=== PATIENT | male | born 1960 | race African-American/Black ===

== ENCOUNTER 2017-10-06 22:26 | Emergency (ER) | payer OTHER ==
[~2017-10-06] VITALS: Ht 182.9 cm; Wt 88.5 kg
[~2017-10-06 22:26] MED LIST: AVELOX400 MG PO; CYCLOBENZAPRINE5 MG PO; FLEXERIL PO; FLONASE 0.05%50 MCG NASAL; IBUPROFEN 600600 M1 PO; NOHOMEMEDICATIONS; NORCO 5-325 TA1 EACH; NORCO 5-325 TA1 EACH PO; PHENERGAN 25 MG25 M1 PO; VALIUM5 MG PO; ZOFRAN 4 MG ORAL4 MG PO; ZOFRAN ODT4 MG PO
[2017-10-06] MEDS ORDERED: MEDROLDOSEPACK PO (23:34)
[2017-10-06] MEDS ORDERED: FLEXERIL PO (23:34)
[2017-10-06] MEDS ORDERED: TESSALON PERLE100 MG PO (23:34)
[2017-10-06 23:37] VITALS: BP 119/74
[2018-02-28] MEDS ORDERED: ATORVASTATIN CA40 MG PO (13:46)
[2018-02-28] MEDS ORDERED: ASPIR 8181 MG PO (13:46)
[2018-02-28] MEDS ORDERED: CLOPIDOGREL75 MG PO (13:46)
== END 2017-10-06 23:52 | disposition home or self-care (01) ==
LOC: ER 22:26
DX: S29.012A Strain of muscle and tendon of back wall of thorax, initial encounter (principal); J20.9 Acute bronchitis, unspecified; F17.210 Nicotine dependence, cigarettes, uncomplicated; Z88.0 Allergy status to penicillin; Z88.6 Allergy status to analgesic agent; X58.XXXA Exposure to other specified factors, initial encounter; Y93.89 Activity, other specified; Y92.89 Other specified places as the place of occurrence of the external cause; Y99.8 Other external cause status

== ENCOUNTER 2018-02-07 18:33 | Emergency (ER) | payer OTHER ==
[~2018-02-07] VITALS: Ht 182.9 cm; Wt 88.0 kg
[~2018-02-07 18:33] MED LIST changes: +MEDROLDOSEPACK PO; +TESSALON PERLE100 MG PO
[2018-02-07] MEDS ORDERED: NORCO 5-325 TA1 EACH PO (20:04)
[2018-02-07 20:38] VITALS: BP 109/72
== END 2018-02-07 20:42 | disposition home or self-care (01) ==
LOC: ER 18:33
DX: S09.90XA Unspecified injury of head, initial encounter (principal); M54.2 Cervicalgia; H53.149 Visual discomfort, unspecified; F17.210 Nicotine dependence, cigarettes, uncomplicated; Z88.0 Allergy status to penicillin; Z88.5 Allergy status to narcotic agent; Y04.8XXA Assault by other bodily force, initial encounter; Y93.89 Activity, other specified; Y92.89 Other specified places as the place of occurrence of the external cause; Y99.8 Other external cause status

== ENCOUNTER 2018-10-02 10:28 | Inpatient (IN) | payer OTHER ==
[~2018-10-02] VITALS: Ht 182.9 cm; Wt 91.1 kg
[~2018-10-02 10:28] MED LIST changes: +ASPIR 8181 MG PO; +ATORVASTATIN CA40 MG PO; +CLOPIDOGREL75 MG PO
[2018-10-02 10:30] VITALS: BP 118/78
[2018-10-02 10:49] LABS: ABSOLUTE NEUTROPHILS 4.2 thou/uL (1.4-8.2); BASOPHILS 1.2 % (0.0-2.0); EOSINOPHILS 3.7 % (0.0-3.0); HEMATOCRIT 50.4 % (42.0-52.0); HEMOGLOBIN 17.3 gm/dL (14.0-18.0); LYMPHOCYTES 25.1 % (24.0-44.0); MCH 32.4 pg (26.0-34.0); MCHC 34.3 g/dL (28.0-37.0); MCV 94.4 fL (80.0-100.0); MONOCYTES 10.9 % (1.0-8.0); POLYS 59.1 % (36.0-66.0); RBC 5.34 mil/uL (4.50-6.00); RDW 14.3 % (10.5-14.5); WBC 7.2 thou/uL (4.0-11.0)
[2018-10-02 10:58] LABS: ANION GAP 10 mmol/L (7-16); BUN 16 mg/dL (7-18); CALCIUM 9.4 mg/dL (8.5-10.1); CHLORIDE 101 mmol/L (98-107); CO2 25 mmol/L (21-32); CREATININE 0.8 mg/dL (0.7-1.3); GLUCOSE 97 mg/dL (74-106); POTASSIUM 4.8 mmol/L (3.5-5.1); SODIUM 136 mmol/L (136-145)
[2018-10-02 11:07] LABS: TROPONIN-I <0.06 ng/mL (<0.06)
[2018-10-02 11:11] LABS: PLATELET COUNT 181 thou/uL (150-400)
[2018-10-02 13:45] VITALS: BP 103/61
[2018-10-02 14:05] VITALS: BP 111/73
--- NOTE | 2018-10-02 14:06 | NUR ---
ORGINAL EKG IS WITH ER DOCTOR AND IS GOING TO TUBE IT DOWN WHEN HE IS DONE.
[2018-10-02 14:13] VITALS: BP 103/60
--- NOTE | 2018-10-02 16:02 | NUR ---
ADMITTED FROM ER UNDER 'S CARE. ADMITTED WITH CHEST PAIN. UPON ADMISSION STILL C/O CHEST PAIN. CHRONIC NECK PAIN ALSO REPORTED. VSS. NO S/S ACUTE DISTRESS NOTED OR REPORTED UPON ADMISSION. CONSULTED FOR CARDIOLOGY AND ORDERED STAT TROPONIN ON PT. PER MD, DO NOT ADMIN ANY MORE PAIN MEDICATION UNTIL EVALUATED BY . PT'S SPOUSE AT BEDSIDE. IVF STARTED ON THE FLOOR. WILL CONT TO MONITOR FOR ANY CHANGES IN CONDITION.
[2018-10-02 20:35] VITALS: BP 105/63
[2018-10-03] VITALS (7 sets, daily range): BP systolic 92–108; BP diastolic 49–67
--- NOTE | 2018-10-03 00:47 | NUR ---
PATIENT SEEN BY DR JAMIL DURING SHIFT CHANGE, AOX4. STILL WITH COMPLAINT OF CHEST PAIN DESCRIBED PRESSURE, SHARP RADIATING TO THE RIGHT AND HURTS MORE WITH LYING DOWN, 8/10. GI COCKTAIL GIVEN ORDERED, PAIN WENT DOWN TO 6/10 ONLY. PATIENT GIVEN NITROGLYCERIN PASTE ORDERED BUT NO CHANGES WAS NOTED. SR ON THE MOITOR. PULSES 2+/2+. NO EDEMA. CLEAR LUNG SOUNDS ON ROOM AIR. INSTRUCTED PATIENT ON NPO STARTING MIDNIGHT, FOR STRESS TEST AND THE POSSIBILITY OF DR PERRY ELECTING TO PROCEED WITH CATH. IV ON THE LEFT HAND WITH NSS AT 75 ML/HOUR, INFUSING WELL. MAINTAINED ON FALL PRECAUTION. FF UP POC.
--- NOTE | 2018-10-03 08:54 | EKG ---
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 : 1960 Requested By: Bello Ferreira Order Number: [id number] MD: Saud Mike Measurements Intervals [place] Rate: 78 P: 82 TN: 114 QRS: 50 QRSD: 87 T: 22 QT: 389 QTc: 444 Interpretive Statements Sinus rhythm Borderline short TN interval Compared to ECG 02/28/2018 06:14:41 no significant change was found Electronically Signed On 10-03-2018 8:54:39 CDT by Saud Mike [email or web address] ��������������������������������������������� <ELECTRONICALLY SIGNED> ���������������������������������������� By: Saud Mike MD, [facility] ��������������������������������������������� 10/03/18 0854 1030 1030 Saud Mike MD, FACC /EPI
--- NOTE | 2018-10-03 08:55 | EKG ---
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: hannah : 1960 Requested By: Bello Ferreira Order Number: [id number] MD: Saud Mike Measurements Intervals [place] Rate: 59 P: 74 ME: 121 QRS: 56 QRSD: 90 T: 12 QT: 438 QTc: 434 Interpretive Statements Sinus rhythm Short ME interval Compared to ECG 02/28/2018 06:14:41 No significant change was found Electronically Signed On 10-03-2018 8:55:05 CDT by Saud Mike [email or web address] ��������������������������������������������� <ELECTRONICALLY SIGNED> ���������������������������������������� By: Saud Mike MD, [facility] ��������������������������������������������� 10/03/18 0855 D: [id number] Saud Mike MD, FACC /EPI
[2018-10-03 09:48] LABS: CHOLESTEROL 157 mg/dL (<200); HDL CHOLESTEROL 39 mg/dL (>40); LDL CHOLESTEROL 103 mg/dL (<100); TRIGLYCERIDE 75 mg/dL (<150); VLDL 15 mg/dL (<40)
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
--- NOTE | 2018-10-03 18:26 | NUR ---
ASSUMED CARE OF PT AT 0645. PLAN FOR STRESS TEST. HARDIK DIET POST TEST. PT WAITING TO HEAR FROM CARDIOLOGY ABOUT CATH. PRN PAIN MEDS. HARDIK UP AD MANOJ. AT BEDSIDE.
[2018-10-04 00:38] VITALS: BP 99/63
[2018-10-04 03:42] VITALS: BP 103/75
--- NOTE | 2018-10-04 05:04 | NUR ---
PT. AOX4 AT SHIFT CHANGE; C/O CHEST PAIN 01/02; REFUSED PRN PAIN MEDICATION; EDUCATED ABOUT PAIN MANAGEMENT; ST. UNDERSTANDING; AROUND 2230; RE-ASSESSMENT OF CHEST PAIN; 03/04; REFUSED NITRO PATCH DUE TO DECREASE BP EARLY ON THE MORNING; OFFERED PRN PAIN MEDICATION; EDUCATED AGAIN ABOUT PAIN MANAGEMENT; ACCEPTED PRN PAIN MEDICATION; PAIN RE-ASSESSMENT 12/02; SBP 99; NO C/O HEADACHE OR DIZZINESS; HR THROUGH THE NIGHT ON 49-50'S; ABLE TO REST DURING THE NIGHT WITH EYES CLOSE; ASSESSMENT CHARGED; FOLLOWING POC; WILL PASS ON REPORT.
[2018-10-04 08:10] VITALS: BP 100/66
[2018-10-04 08:37] LABS: ALBUMIN 2.9 g/dL (3.4-5.0); CALCIUM 8.4 mg/dL (8.5-10.1); CREATININE 0.9 mg/dL (0.7-1.3); POTASSIUM 4.2 mmol/L (3.5-5.1); TOTAL BILIRUBIN 0.2 mg/dL (<0.1-1.0); TOTAL PROTEIN 6.1 g/dL (6.4-8.2)
[2018-10-04 10:53] VITALS: BP 99/51
--- NOTE | 2018-10-04 15:47 | NUR ---
patient returned from cardiac cath. [facility] following. He has no health insurance. [employer] (formerly [employer]) has met with patient. He has safety clinic information from 03/13. [facility] to meet with patient and assist with dc planning.
--- NOTE | 2018-10-04 16:44 | NUR ---
ASSESSMENT CHARTED - PT NPO AFTER LIQUID BREAKFAST THIS AM FOR CATH THIS AFTERNOON. PT EDUCATED IN REGARDS TO CATH AND PERMIT SIGNED. PT STARTED ON IMDUR THIS AM ORDERED. PT STATING PAIN TO UPPER CHEST IS MORE OF A SORENESS RATHER THAN SHARP PAIN. PT IN EPIDEMIOLOGY INTERNSHIP AT THE PRESENT TIME AWAITNG PATIENT RETURN.
[2018-10-04 19:43] VITALS: BP 100/57
[2018-10-05 00:19] VITALS: BP 104/61
--- NOTE | 2018-10-05 03:38 | NUR ---
ASSUMED PT CARE AT 1900. VSS. PT A&0X4. PT POST CLEAN CATH. R GROIN ACCESS SITE IS CDI, NO HEMATOMA, SOFT TO PALPATION. PT COMPLAINED OF SOPME TENDERNESS AT THE SITE, HYDROCODONE ADMINISTERED PAIN RELIEF REPORTED. I WENT OVER LIFESTYLE CHANGES WITH THE PATIENT WHICH INCLUDES DIETARY CHANGES, EXCERCISE, SMOKING CEASATION. PT COMMUNICATES UNDERSTANDING AND PROMISED TO MODIFY RISK FACTORS. PT IS STABLE, HE SLEPT FOR MOST OF THE NIGHT, HE WAS TRIPP IN THE HIGH 50s ON THE MONITOR, SHOULD D/C IN THE AM.
[2018-10-05 04:39] VITALS: BP 104/69
[2018-10-05 07:39] VITALS: BP 123/73
[2018-10-05] MEDS ORDERED: EFFIENT10 MG PO (09:24)
[2018-10-05] MEDS ORDERED: IMDUR 30 MG TAB30 M1 PO (09:24)
[2018-10-05] MEDS ORDERED: METOPROLOL SUCC50 MG PO (11:33)
[2018-10-05 12:59] VITALS: BP 123/73
--- NOTE | 2018-10-05 14:24 | NUR ---
PT HARDIK DIET AND FLUIDS. UP AD MANOJ - NO CO'S OF PAIN OR NAUSEA. SEEN BY CARDIAC REHAB THIS AM. PT HOME AFTER LUNCH. INSTRCUTION RE HOME MEDS/ CARE AND FOLLOW UP GIVEN TO PATIENT - STATED UNDERSTANDING OF INSTRUCTION GIVEN. IV AND TELE MONITOR REMOVED. PATIENT LEFT UNIT VIA WHEEL CHAIR - HOME VIA PVT VEHICLE ACCOMPANIED BY - NO CO'S AT TIME OF D/C.
--- NOTE | 2018-10-06 14:18 | CATHLAB ---
[facility] [address] [place] [address] INVASIVE PROCEDURE REPORT Name: LUIS ABREU Room #: 204-P DIS IN M.R.#: [id number] ������������� Admission: 10/02/18 ������������� Attend Phys: Rosalina Schuster Discharge: ��� 10/05/18 ������������� ��� Date of : 62 Date of Service: 10/06/18 1418 �� Report #: [id number] �������� ��������������������������������������������[id number] THIS REPORT FOR: //name// APPROVED REPORT Study performed: 10/04/2018 16:08:01 Patient Details Patient Status: In-Patient Room #: The patient is a 58 year-old male Event Personnel Heriberto Wynn Lithopone Charger, Ana Lucio RN RN, Luis Beebe RN RN, Sabine French RTR, HIGH SPEED WARPER TENDER Alejo, Jacquelyn Mejias Monitor Procedures Performed Art Access - R femoral artery* 62456 Initial Mod Sed Same Phys/QHP Gr5y 165726 54041 Mod Sed Same Phys/QHP Ea 665294 Left Heart Cath w/or w/o Coronaries [id number] [facility] Hemostasis w/ Mynx, supervision of conscious sedation Indication Positive stress test, Chest pain Procedure Narrative The patient was brought urgently to the Cardiac Catheterization Laboratory and was prepped and draped in a sterile manner. The Right Groin^ was infiltrated with 1% Lidocaine subcutaneous anesthesia. A PINNACLE 4FR Sheath #[id number] sheath was inserted into the RFA^. Coronary angiography was performed using coronary diagnostic catheters. The right coronary system was accessed and visualized with a JR 4 catheter. The left coronary system was accessed and visualized with a JL 4 catheter. The left ventricle was accessed and visualized with a Pigtail catheter. Left ventricular/Aortic Valve gradient assessed via catheter pullback. Closure device was deployed with a 6 Fr Mynx. The patient tolerated the procedure well and there were no complications associated with the procedure. There was no hematoma. Intraoperative Conscious Sedation Sedation start time: 16:25 Case end Time: 17:12 Versed 2 mg [address] [place] [address] INVASIVE PROCEDURE REPORT Name: BRADYLUIS SALINAS Room #: 204-P DIS IN [facility].#: [id number] ������������� Admission: 10/02/18 ������������� Attend Phys: Rosalina Schuster Discharge: ��� 10/05/18 ������������� ��� Date of : 62 Date of Service: 10/06/18 1418 �� Report #: [id number] �������� ��������������������������������������������[id number] Fluoro Time: 15.09 minutes Dose: DAP 08869.00 cGycm2 1541 mGy Contrast Type and Amount: Omnipaque 150 ml Coronary Angiography The patient's coronary anatomy is left dominant. Diagnostic Cath Left Main Caliber vessel of normal origin of the case into a left anterior descending left circumflex and the ramus intermedius. It is free of significant high-grade lesions. LAD large caliber vessel coursing the anterior interventricular sulcus. This lumen irregularities noted throughout the proximal and the mid course of less than 50% as the vessel proceeds hooking the apex and terminating in the posterior aspect of the left ventricle. Diagonal 1 Large-caliber vessel coursing around the anterolateral wall feel high-grade disease only luminal irregularities are noted Circumflex Her caliber vessel which in its proximal course has irregularities of 30-40%. It then proceeds posteriorly to the crux of the heart where it gives rise to a small posterior descending artery. No high-grade obstructive lesions are noted Right Coronary A moderate non-dominant vessel which has a stent and is completely occluded prior to reaching the crux of the heart. Distally a small string-like vessel had non-dominant RV branches are noted Ramus Large caliber vessel arising from the left main coursing along the lateral aspect of the heart bifurcating into sequentially bifurcating branches that supply the lateral and inferolateral huang. It is free of significant high-grade lesions only luminal irregularities noted Hemodynamics The aortic pressure is 111/67 mmHg with a mean of 86 mmHg. The left ventricular pressure is 112/17 mmHg with a mean of mmHg. The left ventricular end diastolic pressure is 31 mmHg. PCI Technique In view of a totally occluded stent which appears to likely have occurred prior to this admission it was reasonable to attempt control crossing. This was then proceeded with the exchange of the diagnostic catheter for a standard right guide. A 014 wire was advanced and attempted to cross the lesion and multiple weight-bear small little branches prior to it per minute axis to it. In view of the patient's distal circulation being small and nondominant it was felt the risk [address] [address] INVASIVE PROCEDURE REPORT Name: BRADYLUIS SALINAS Room #: 204-P [facility] IN M.R.#: [id number] ������������� Admission: 10/02/18 ������������� Attend Phys: Rosalina Schuster Discharge: ��� 10/05/18 ������������� ��� Date of : 62 Date of Service: 10/06/18 1418 �� Report #: [id number] �������� ��������������������������������������������[id number] to benefit ratio favored stopping the procedure before attempting any further dilatation Conclusion 1. Coronary disease multivessel with severe poorly occluded nondominant right coronary artery at the prior stent 2. Abnormal urinalysis elevated left ventricular end-diastolic pressures Recommendations Aggressive Medical Therapy Medical Therapy ��������������������������������������������� <ELECTRONICALLY SIGNED> ���������������������������������������� By: Heriberto Wynn MD ��������������������������������������������� 10/06/18 1418 1418 141 Heriberto Wynn MD /INF
== END 2018-10-05 13:55 | disposition home or self-care (01) | DRG 287 ==
LOC: ER 10:28 → 2N 13:22 → EROBS 13:22 → 2N 14:07 → ENTRNSPT 10-05 13:36 → EDTRNSPTSTS 10-05 13:38 → 2N 10-05 13:55
PROVIDERS: Emergency Medicine; Nurse Practitioner; ADMIT Hospitalist
DX: I24.9 Acute ischemic heart disease, unspecified (principal); F12.90 Cannabis use, unspecified, uncomplicated; F17.210 Nicotine dependence, cigarettes, uncomplicated; I25.10 Atherosclerotic heart disease of native coronary artery without angina pectoris; M19.90 Unspecified osteoarthritis, unspecified site; E78.5 Hyperlipidemia, unspecified; Z95.5 Presence of coronary angioplasty implant and graft; Z88.6 Allergy status to analgesic agent; Z88.0 Allergy status to penicillin; Z82.49 Family history of ischemic heart disease and other diseases of the circulatory system; I25.2 Old myocardial infarction; Z79.82 Long term (current) use of aspirin; Z79.899 Other long term (current) drug therapy
CPT/HCPCS: 10081

== ENCOUNTER 2018-10-09 13:34 | Inpatient (IN) | payer OTHER ==
[~2018-10-09] VITALS: Ht 182.9 cm; Wt 93.0 kg
[~2018-10-09 13:34] MED LIST changes: +EFFIENT10 MG PO; +IMDUR 30 MG TAB30 M1 PO; +METOPROLOL SUCC50 MG PO
[2018-10-09 13:40] VITALS: BP 111/77
[2018-10-09] MEDS ORDERED: LOPRESSOR25 PO (14:29)
[2018-10-09 14:44] LABS: ABSOLUTE NEUTROPHILS 10.2 thou/uL (1.4-8.2); BASOPHILS 0.7 % (0.0-2.0); EOSINOPHILS 0.6 % (0.0-3.0); HEMATOCRIT 46.1 % (42.0-52.0); HEMOGLOBIN 15.9 gm/dL (14.0-18.0); LYMPHOCYTES 9.6 % (24.0-44.0); MCH 32.4 pg (26.0-34.0); MCHC 34.5 g/dL (28.0-37.0); MCV 93.9 fL (80.0-100.0); MONOCYTES 5.8 % (1.0-8.0); POLYS 83.3 % (36.0-66.0); RBC 4.91 mil/uL (4.50-6.00); RDW 13.5 % (10.5-14.5); WBC 12.2 thou/uL (4.0-11.0)
[2018-10-09 14:52] LABS: CALCIUM 8.7 mg/dL (8.5-10.1); CREATININE 0.9 mg/dL (0.7-1.3); POTASSIUM 3.7 mmol/L (3.5-5.1)
[2018-10-09 14:58] LABS: ALBUMIN 3.2 g/dL (3.4-5.0); TOTAL BILIRUBIN 0.3 mg/dL (<0.1-1.0); TOTAL PROTEIN 7.9 g/dL (6.4-8.2)
[2018-10-09 15:03] LABS: LARGE PLATELETS RARE; PLATELET COUNT 157 thou/uL (150-400)
[2018-10-09 16:46] VITALS: BP 121/75
[2018-10-09 16:53] LABS: URINE BILIRUBIN NEGATIVE (Negative); URINE BLOOD NEGATIVE (Negative); URINE CLARITY CLEAR; URINE COLOR YELLOW; URINE GLUCOSE-RANDOM* NEGATIVE (Negative); URINE KETONES NEGATIVE (Negative); URINE LEUKOCYTES-REFLEX NEGATIVE (Negative); URINE NITRITE-REFLEX NEGATIVE (Negative); URINE PROTEIN (DIPSTICK) NEGATIVE (Negative); URINE UROBILINOGEN 0.2 E.U./dl (0.2-1.0)
[2018-10-09 17:11] VITALS: BP 119/77
[2018-10-09 17:30] VITALS: BP 131/84
--- NOTE | 2018-10-09 18:09 | NUR ---
PT ARRIVED FROM ED AT 17:26. MARKIE AT BEDSIDE. ADMISSION ASSESSMENT COMPLETED. A&0,X4. C/O RIGHT FLANK PAIN RADIATING TO ABD AND BACK, PT GRIMACING IN PAIN. NEXT PAIN MED AVAILABLE AT 2100, PHYSICIAN NOTIFIED. NO NEW PAIN MED ORDERS AT THIS TIME. HX CARDIAC STENT IN FEBRUARY 2018 AND RECENT HOSPITALIZATION. SKIN INTACT. BRUISING NOTED RLQ ABD FROM LOVENOX INJECTIONS. PT REPORTS NAUSEA/VOMITING AT HOME, DARK EMESIS X2. WILL CONTINUE TO MONITOR.
[2018-10-09 20:18] VITALS: BP 118/81
--- NOTE | 2018-10-10 04:34 | NUR ---
PT STATES NO N/V OR DIARRHEA THIS EVENING. CHIEF COMPLAINT IS GENERALIZED ABDOMINAL PAIN. PT STATES, "WHAT EVER YOU ARE GIVING ME IS NOT WORKING!" SPOKE WITH PT DURING ASSESSMENT AND SUGGESTED A DIFFERENT IV PAIN MEDICATION. PT IS NPO SINCE ADMISSION. CALLED [employer] GRINDER FEEDER AND GOT NEW ORDER FOR FENANYL Q4. PT HAS HAD GOOD RESULTS WITH PAIN COMING UNDER CONTROL. IVF PER POC. HOURLY ROUNDING.
[2018-10-10 04:45] VITALS: BP 106/66
[2018-10-10 05:43] LABS: HEMATOCRIT 41.9 % (42.0-52.0); HEMOGLOBIN 14.2 gm/dL (14.0-18.0); MCH 32.1 pg (26.0-34.0); MCHC 33.8 g/dL (28.0-37.0); MCV 94.8 fL (80.0-100.0); RBC 4.42 mil/uL (4.50-6.00); RDW 13.8 % (10.5-14.5); WBC 10.7 thou/uL (4.0-11.0)
[2018-10-10 05:53] LABS: CALCIUM 8.2 mg/dL (8.5-10.1); CREATININE 0.8 mg/dL (0.7-1.3); POTASSIUM 3.6 mmol/L (3.5-5.1)
[2018-10-10 08:40] VITALS: BP 102/55
[2018-10-10 15:34] VITALS: BP 112/60
--- NOTE | 2018-10-10 16:58 | EKG ---
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: DAMGAR : 1960 Requested By: Danielle Herndon Order Number: [id number] MD: Saud Mike Measurements Intervals [place] Rate: 53 P: 65 WV: 133 QRS: 31 QRSD: 82 T: -3 QT: 430 QTc: 404 Interpretive Statements Sinus bradycardia Otherwise normal tracing Compared to ECG 10/02/2018 11:08:48 No significant change was found Electronically Signed On 10-10-2018 16:58:06 CDT by Saud Mike [email or web address] ��������������������������������������������� <ELECTRONICALLY SIGNED> ���������������������������������������� By: Saud Mike MD, [facility] ��������������������������������������������� 10/10/18 1658 1406 140 Saud Mike MD, FACC /EPI
--- NOTE | 2018-10-10 18:32 | NUR ---
Assumed care of Pt at 0700. PT alert and oriented, complaining of RLQ pain that radiates to flank. CT showing worsening inflammation around pancreas. to be NPO until tomorrow per GI. pt reports pain not well controlled with current med regimen - physician notified - no orders received. pt up ad tariq w/ steady gait. calls out appropriately. slow progress toward poc goals.
[2018-10-10 19:17] VITALS: BP 95/51
[2018-10-11 03:00] VITALS: BP 111/63
--- NOTE | 2018-10-11 04:52 | NUR ---
FOLLOWING POC IVF FOR PT. BEFORE 1900 SHIFT CHANGE PT DECIDED TO EAT SOME SOUP. PT THEN STATES HE IS IN MASSIVE PAIN. DIET PLAN WAS TO PROGRESS TOWARDS CLEARS THEN TOLERATE ALLOWABLE. PT ASKED IF PAIN MEDICATION COULD BE GIVEN EARLIER THAN Q4. GOT IT CHANGED TO Q2 AND HAVING GOOD RESULTS. HOURLY ROUNDING.
[2018-10-11 06:07] LABS: HEMATOCRIT 40.4 % (42.0-52.0); HEMOGLOBIN 13.8 gm/dL (14.0-18.0); MCH 32.2 pg (26.0-34.0); MCHC 34.2 g/dL (28.0-37.0); MCV 94.1 fL (80.0-100.0); RBC 4.29 mil/uL (4.50-6.00); RDW 13.5 % (10.5-14.5); WBC 8.7 thou/uL (4.0-11.0)
[2018-10-11 06:49] LABS: ALBUMIN 2.4 g/dL (3.4-5.0); CALCIUM 7.9 mg/dL (8.5-10.1); CREATININE 0.8 mg/dL (0.7-1.3); POTASSIUM 3.5 mmol/L (3.5-5.1); TOTAL BILIRUBIN 0.4 mg/dL (<0.1-1.0); TOTAL PROTEIN 6.1 g/dL (6.4-8.2)
[2018-10-11 07:34] VITALS: BP 110/71
--- NOTE | 2018-10-11 10:40 | NUR ---
ASSESSMENT: CM REVIEWED CHART AND MET WITH PATIENT AT THE BEDSIDE. PT IS ALERT AND ORIENTED X4. PT REPORTS HE LIVES IN A HOME ALONE. PT REPORTS BEING FULLY INDEPENDENT WITH ADLS AND AMBULATION. PT DENIES HAVING HH IN THE PAST. PT STATES HE HAS APPLIED FOR MEDICAID (REFERRAL SENT TO [facility] [employer] FOR FOLLOW UP). CM DISCUSSED ROLE. PT DOES NOT ANTICIPATE HAVING ANY NEEDS AT DISCHARGE. SURGERY WAS CONSULTED FOR PATIENT AND PLANS FOR CONSERVATIVE MEASUREMENTS AT THIS TIME.
[2018-10-11 11:14] VITALS: BP 117/75
[2018-10-11 15:55] VITALS: BP 100/59
[2018-10-11 19:20] VITALS: BP 111/82
[2018-10-12 02:50] VITALS: BP 121/73
--- NOTE | 2018-10-12 05:08 | NUR ---
RESTING QUIETLY TONIGHT. CONITNUES ON IV FLUIDS. STRONG STEADY GAIT. CAREPLAN REVIEWED. CONTINUES TO HAVE PAIN IN HIS ABDOMEN.
[2018-10-12 05:35] LABS: HEMATOCRIT 39.1 % (42.0-52.0); HEMOGLOBIN 13.4 gm/dL (14.0-18.0); MCH 32.2 pg (26.0-34.0); MCHC 34.4 g/dL (28.0-37.0); MCV 93.6 fL (80.0-100.0); RBC 4.17 mil/uL (4.50-6.00); RDW 13.5 % (10.5-14.5); WBC 6.8 thou/uL (4.0-11.0)
[2018-10-12 06:33] LABS: ALBUMIN 2.3 g/dL (3.4-5.0); CHOLESTEROL 91 mg/dL (<200); DIRECT BILIRUBIN 0.2 mg/dL (<0.1-0.3); HDL CHOLESTEROL 30 mg/dL (>40); LDL CHOLESTEROL 51 mg/dL (<100); LIPASE 66 U/L (73-393); SGOT 40 U/L (15-37); SGPT 56 U/L (30-65); TOTAL BILIRUBIN 0.5 mg/dL (<0.1-1.0); TOTAL PROTEIN 5.8 g/dL (6.4-8.2); TRIGLYCERIDE 53 mg/dL (<150); VLDL 11 mg/dL (<40)
[2018-10-12 07:47] VITALS: BP 121/71
--- NOTE | 2018-10-12 12:19 | NUR ---
care of pt assumed this am @ 0700. pt co lower back pain (band of ~4 inches) across his lower back. pt aware of pain medication frequency and states that it is really "not holding back the pain for that time". pt verbalized his desire for a change in pain medication frequency to dr rajput. pt npo w/ ice chips but does not desire ice chips at this time due to the nause they created for him last night. pt chewing gum to help subside nausea "flare ups". ivf's infusing w/o concern at this time. pt up ad tariq to the bthrm w/ a steady, balanced and coordinated gait. pt encouraged to ambulate in the hallways today to help mobility and respiratory fx. pt co pain [phone], pt noted to be sleeping after pain medication given.
--- NOTE | 2018-10-12 15:24 | NUR ---
ON-GOING ASSESSMENT: CM REVIEWED CHART AND SPOKE WITH ATTENDING. PT IS SLOWLY PROGRESSING TOWARDS DISCHARGE GOALS. PT IS STILL HAVING PAIN AND NOT MEDICALLY STABLE AT THIS TIME. CM WILL CONTINUE TO FOLLOW TO ASSIST NEEDED.
[2018-10-12 16:00] VITALS: BP 116/79
--- NOTE | 2018-10-12 18:00 | NUR ---
ASSUMED CARE AT 1700, PATIENT WAS A TRANSFER FOR 357, VSS. UP AD MANOJ, ON IV FLUIDS, NPO EXCEPT ICE CHIPS. REPORTED PAIN, PRN PAIN MED WILL BE GIVEN SCHEDULED.
[2018-10-12 18:52] VITALS: BP 115/72
--- NOTE | 2018-10-13 06:04 | NUR ---
PATIENTS CARES WERE ASSUMED AT SHIFT CHANGE. PATIENT WAS ASSESSED AND MEDS WERE PASSED. PATIENT WAS PLACED ON CLEAR LIQ DIET. PATIENT IS STILL NOT ABLE TO DRINK WITHOUT DISCOMFORT. PREMEDICATION FOR PAIN BEFORE HE DRANK CHICKEN BROTH. HOURLY ROUNDING WAS DONE. PATIENT APPERED TO BE SLEEPING WELL. THE BED IS IN A LOW AND LOCKED POSITION. THE BED ALARM IS ON.
[2018-10-13 08:30] VITALS: BP 122/79
--- NOTE | 2018-10-13 09:29 | NUR ---
Nutrition: assess d/t pancreatitis dx. Pt reports he was eating fine before admit. Now on clear liquids, is tolerating okay but going slowly. He states a UBW of 205 lbs, no recent change. Will follow for diet advancement. Otherwise, consider low nutrition risk.
--- NOTE | 2018-10-13 09:46 | NUR ---
ON-GOING ASSESSMENT: CM REVIEWED CHART AND MET WITH PATIENT AT THE BEDSIDE. PT IS STILL HAVING PAIN. PER GI PT IS TO HAVE ULTRASOUND AND MAY NEED POSSIBLE MRCP. CM MET WITH PATIENT AT THE BEDSIDE AND HE REPORTS HE IS INDEPENDENT AND STATES HE DOES NOT FEEL HE WILL NEED HH AT DISCHARGE AND IS GETTING AROUND FINE. CM WILL CONTINUE TO FOLLOW TO ASSIST NEEDED.
--- NOTE | 2018-10-13 09:54 | NUR ---
ON-GOING ASSESSMENT: PT TO HAVE BRONCH TODAY. PT IS THEN TO HAVE CT NEEDLE BIOPSY OF LUNG MASS ON WEDNESDAY AM. CM REQUESTED SOCK MENDER SENT UPDATES TO THE [facility]. CM WILL CONTINUE TO FOLLOW TO ASSIST NEEDED.
--- NOTE | 2018-10-13 10:16 | NUR ---
ASSUMED PATIENT AND CARES AT 0715, PATIENT SITTING UPRIGHT ON SIDE OF BED, A&OX4, PAIN 8/10 TO ABD, RIGHT FOREARM IV INTACT AND PATENT WITH FLUIDS INFUSING, NONSKID SOCKS IN PLACE, UP AD MANOJ, NO FALL RISK, PERSONAL BELONGINGS AND CALL LIGHT IN REACH, WILL CONTINUE TO MONITOR
--- NOTE | 2018-10-13 18:08 | NUR ---
THIS RN AGREES WITH ASSESSMENT MADE BY DEN FUNEZ.
[2018-10-13 18:50] VITALS: BP 131/76
--- NOTE | 2018-10-14 04:25 | NUR ---
PATIENTS CARESS WERE ASSUMED AT SHIFT CHANGE. PATIENT WAS ASSESSED MEDS WERE PASSED. PATIENT DOES CONTINUE TO HAVE PAIN WHEN HE EATS. EATING HAPPENED ONLY TWICE THIS SHIFT. HOURLY ROUNDING WAS DONE PATIENT DID APPER TO SLEEP MOST OF THIS SHIFT. THE BED IS IN A LOW AND LOCKED POSITION. THE BED ALARM IS ON.
[2018-10-14 07:15] VITALS: BP 133/90
--- NOTE | 2018-10-14 08:23 | NUR ---
ASSUMED PATIENT AND CARES AT 0715, PATIENT IN BED WAKING UP NURSE ENTERED ROOM, REMAINS A&OX4, NO C/O PAIN OR DISCOMFORT AT THIS TIME, NPO SINCE MIDNIGHT FOR EGD THIS DAY, LEFT FOREARM IV INTACT AND PATENT WITH FLUIDS INFUSING, PER PATIENT REQUEST NURSE RETRIEVED SET UP FOR SHOWER, PATIENT WANTS TO SHOWER BEFORE EGD, REMAINS UP AD MANOJ WITH STEADY GAIT, PERSONAL BELONGINGS AND CALL LIGHT IN REACH, WILL CONTINUE TO MONITOR.
[2018-10-14 18:28] VITALS: BP 120/48
[2018-10-14 19:33] VITALS: BP 103/82
--- NOTE | 2018-10-15 14:42 | NUR ---
ASSUMED CARE THIS AM, SHIFT ASSESSMENT DONE, MEDS GIVEN. REPROTED HEADECHE, REFUSED BP MED THIS AM, PROVIDER AWARE. DR SANDHU TALKED TO THE PATIENT EXTENSIVELY AND ADVANCED TO A SOFT DIET, TOLERATED WELL FOR LUNCH. REPORTED PAIN, PRN PAIN MEDS GIVEN. IV FLUIDS DC'D. WILL CONTINUE TO ASSESS AND ASSIST WITH ADLs NEEDED.
[2018-10-15 20:10] VITALS: BP 118/83
--- NOTE | 2018-10-16 03:22 | NUR ---
PATIENT ALERT AND ORIENTED X4. UP ADLIB IN ROOM AND HALLWAY. AT BEDSIDE IN EARLY EVENING. PATIENT DENIES N/V. C/O HEADACHE PAIN AND GIVEN PRN MEDICATION WITH GOOD RESULTS. PATIENT ASLEEP. TOLERATING SOFT DIET. POSSIBLE D/C TODAY.
[2018-10-16 09:04] VITALS: BP 131/71
[2018-10-16] MEDS ORDERED: PERCOCET PO (10:08)
[2018-10-16] MEDS ORDERED: PANTOPRAZOLE SO40 M1 PO (10:08)
[2018-10-16 10:46] VITALS: BP 131/71
--- NOTE | 2018-10-16 11:32 | NUR ---
ASSUMED CARE AT 0700, SHIFT ASSESSMENT DONE, MEDS GIVEN, VSS. TOLERATING SOFT DIET. DID NOT REPORT ANY NAUSEA, VOMITING OR PAIN. DISCHARGE ORDER RECEIVED. SCRIPT AND PAPER WORK GIVEN. PERIPHERAL IV WAS TAKEN OUT. PATIENT LEFT THE UNIT AT 1130, NURSING AID WHEELED THE PATIENT OUT.
[2018-10-17 17:07] LABS: IgG 1190 mg/dL (700-1600)
--- NOTE | 2018-10-18 11:07 | PATH ---
[facility] [address] [place] [address] PATHOLOGY RPT PROCEDURE Name: LUIS ABREU Room #: 221-P DIS IN M.R.#: [id number] ������������������ Admission: 10/09/18 ������������������ Date of : 62 Discharge: 10/16/18 Report #: [id number] Path Case #: [id number] [facility] Accession Number: [id number] . 01 Material submitted: . BX ANTRUM FOR H-PYLORI . 01 Clinical history: . Pre-OP DX: Abdominal pain Post-OP DX: Gastric ulcer . 02 Diagnosis: Gastric mucosa, antrum for H. pylori, endoscopic biopsy: - Mild chronic active gastritis with features of reactive gastropathy. - Negative for intestinal metaplasia or atrophy. - Negative for Helicobacter pylori (properly controlled immunohistochemical stain performed). (IUV/db; 10/17/2018) LBQ/10/17/2018 . 02 Electronically signed: . Bertha Yeung MD, Pathologist NPI- [id number] . 01 Gross description: . Received in formalin labeled "Luis Abreu, BX antrum," is a single segment of kilgore soft tissue measuring 0.5 cm in maximum dimension. The specimen is entirely submitted in cassette A1. (TSD; 10/14/2018) TOB/TOB . 02 Pathologist provided ICD-10: K29.50, K31.9 . 02 CPT . 888957, E15788 Specimen Comment: A courtesy copy of this report has been sent to Specimen Comment: [phone], . Specimen Comment: Report sent to / DR MAO Specimen Comment: A duplicate report has been generated due to demographic updates. Performed at: 01 [place] [id number] [address] [id number] MD Cricket Stanley MD Phone: [phone] Performed at: [address] [address] PATHOLOGY RPT PROCEDURE Name: LUIS ABREU Room #: 221-P DIS IN M.R.#: [id number] ������������������ Admission: 10/09/18 ������������������ Date of : 62 Discharge: 10/16/18 Report #: [id number] Path Case #: [id number] [address] [place] [id number] MD Bertha Yeung MD Phone: [phone]
== END 2018-10-16 11:35 | disposition home or self-care (01) | DRG 439 ==
LOC: ER 13:34 → EROBS 16:05 → 3W 16:05 → ENTRNSPT 10-12 16:18 → SICU 10-12 17:33
PROVIDERS: Nurse Practitioner; Physician Assistant; ADMIT Internal Medicine
PROC: 0DB68ZX Excision of Stomach, Via Natural or Artificial Opening Endoscopic, Diagnostic (ICD-10-PCS; principal; 2018-10-14)
DX: K85.90 Acute pancreatitis without necrosis or infection, unspecified (principal); B17.9 Acute viral hepatitis, unspecified; I25.10 Atherosclerotic heart disease of native coronary artery without angina pectoris; I10 Essential (primary) hypertension; E78.5 Hyperlipidemia, unspecified; M19.90 Unspecified osteoarthritis, unspecified site; K25.9 Gastric ulcer, unspecified as acute or chronic, without hemorrhage or perforation; K29.80 Duodenitis without bleeding; Z88.0 Allergy status to penicillin; Z88.2 Allergy status to sulfonamides; Z79.82 Long term (current) use of aspirin; Z98.1 Arthrodesis status; Z95.5 Presence of coronary angioplasty implant and graft; Z82.49 Family history of ischemic heart disease and other diseases of the circulatory system; Z87.891 Personal history of nicotine dependence; I25.2 Old myocardial infarction; Z87.11 Personal history of peptic ulcer disease
CPT/HCPCS: 10879; 15002; 62110; 62900; 70005

== ENCOUNTER 2019-09-28 21:05 | Emergency (ER) | payer BC ==
[~2019-09-28] VITALS: Ht 182.9 cm; Wt 95.3 kg
[~2019-09-28 21:05] MED LIST changes: +LOPRESSOR25 PO; +PANTOPRAZOLE SO40 M1 PO; +PERCOCET PO
[2019-09-28] MEDS ORDERED: NORCO 7.5-3251 EACH PO (22:00)
[2019-09-28 22:25] VITALS: BP 119/75
== END 2019-09-28 22:26 | disposition home or self-care (01) ==
LOC: ER 21:05
DX: S83.8X1A Sprain of other specified parts of right knee, initial encounter (principal); F17.210 Nicotine dependence, cigarettes, uncomplicated; I25.2 Old myocardial infarction; Z98.61 Coronary angioplasty status; Z98.890 Other specified postprocedural states; Z79.82 Long term (current) use of aspirin; Z79.899 Other long term (current) drug therapy; Z88.5 Allergy status to narcotic agent; Z88.0 Allergy status to penicillin; X50.1XXA Overexertion from prolonged static or awkward postures, initial encounter; Y93.01 Activity, walking, marching and hiking; Y92.89 Other specified places as the place of occurrence of the external cause; Y99.8 Other external cause status

== ENCOUNTER 2020-01-03 03:43 | Emergency (ER) | payer BC ==
[~2020-01-03] VITALS: Ht 182.9 cm; Wt 97.5 kg
[~2020-01-03 03:43] MED LIST changes: +NORCO 7.5-3251 EACH PO
[2020-01-03] MEDS ORDERED: TRAMADOL 50 MG50 MG PO (05:02)
[2020-01-03] MEDS ORDERED: NAPROSYN500 MG PO (05:02)
[2020-01-03 05:04] VITALS: BP 109/75
== END 2020-01-03 05:18 | disposition home or self-care (01) ==
LOC: ER 03:43
DX: M17.11 Unilateral primary osteoarthritis, right knee (principal); F17.210 Nicotine dependence, cigarettes, uncomplicated; Z88.5 Allergy status to narcotic agent; Z88.0 Allergy status to penicillin; Z79.899 Other long term (current) drug therapy; Z79.82 Long term (current) use of aspirin; Z98.890 Other specified postprocedural states

== ENCOUNTER 2020-02-02 05:34 | Emergency (ER) | payer BC ==
[~2020-02-02] VITALS: Ht 182.9 cm; Wt 96.6 kg
[~2020-02-02 05:34] MED LIST changes: +NAPROSYN500 MG PO; +TRAMADOL 50 MG50 MG PO
[2020-02-02] MEDS ORDERED: NITROSTAT0.4 M1 (05:41)
[2020-02-02] MEDS ORDERED: TRAMADOL 50 MG50 MG PO (06:22)
[2020-02-02] MEDS ORDERED: NAPROSYN500 MG PO (06:22)
[2020-02-02] MEDS ORDERED: NORCO 5-325 TA1 EAC2 PO (06:37)
[2020-02-02 06:47] VITALS: BP 132/89
== END 2020-02-02 06:48 | disposition home or self-care (01) ==
LOC: ER 05:34
DX: M17.11 Unilateral primary osteoarthritis, right knee (principal); G89.29 Other chronic pain; F17.210 Nicotine dependence, cigarettes, uncomplicated; Z88.5 Allergy status to narcotic agent; Z88.0 Allergy status to penicillin; Z95.5 Presence of coronary angioplasty implant and graft

== ENCOUNTER → 2020-04-04 | Outpatient (CLI) | payer BC ==
[~2020-04-04] MED LIST changes: +ASA81BEC PO; +LIPITOR40 MG PO; +METOPROLOL TART25 MG PO; +NITROSTAT0.4 M1 SUBLING; +NORCO 5-325 TA1 EAC2 PO
== END ==
LOC: LAB 14:26
PROVIDERS: ATTEND Orthopaedic Surgery
DX: Z01.812 Encounter for preprocedural laboratory examination (principal); Z20.828 Contact with and (suspected) exposure to other viral communicable diseases

== ENCOUNTER 2020-04-09 06:26 | Day surgery (SDC) | payer BC ==
[2020-04-02 11:15] LABS: HEMATOCRIT 49.1 % (42.0-52.0); HEMOGLOBIN 16.5 gm/dL (14.0-18.0); MCH 32.1 pg (26.0-34.0); MCHC 33.6 g/dL (28.0-37.0); MCV 95.6 fL (80.0-100.0); RBC 5.14 mil/uL (4.50-6.00); RDW 14.4 % (10.5-14.5); WBC 7.2 thou/uL (4.0-11.0)
[2020-04-02 11:16] LABS: URINE BILIRUBIN NEGATIVE (Negative); URINE BLOOD NEGATIVE (Negative); URINE CLARITY CLEAR; URINE COLOR YELLOW; URINE GLUCOSE-RANDOM* NEGATIVE (Negative); URINE KETONES NEGATIVE (Negative); URINE LEUKOCYTES-REFLEX NEGATIVE (Negative); URINE NITRITE-REFLEX NEGATIVE (Negative); URINE PROTEIN (DIPSTICK) NEGATIVE (Negative); URINE SPECIFIC GRAVITY 1.025 (1.005-1.035); URINE UROBILINOGEN 0.2 E.U./dl (0.2-1.0)
[2020-04-02 11:24] LABS: ALBUMIN 3.3 g/dL (3.4-5.0); CALCIUM 8.4 mg/dL (8.5-10.1); CREATININE 0.7 mg/dL (0.7-1.3); POTASSIUM 4.1 mmol/L (3.5-5.1)
[2020-04-02 11:29] LABS: PROTIME 10.7 Seconds (9.3-11.4)
[~2020-04-09] VITALS: Ht 182.9 cm; Wt 96.6 kg
[2020-04-09 07:27] VITALS: BP 112/80
[2020-04-09 12:10] VITALS: BP 116/78
[2020-04-09 12:14] VITALS: BP 131/78
[2020-04-09 12:15] VITALS: BP 136/78
--- NOTE | 2020-04-09 14:03 | O ---
[facility] [place] [address] OPERATIVE REPORT Name: LUIS ABREU Room #: 439-P [facility] M.R.#: [id number] Admission: 04/09/20 Attend Phys: Ismael Narayanan MD Discharge: Date of : 62 Report #: [id number] THIS REPORT FOR: cc: MARIAM - Elva family physician/PCP MARIAM - Elva family physician/PCP Ismael Narayanan MD ~ CC: MARIAM physician/PCP Ismael Narayanan DATE OF SERVICE: 04/09/2020 PREOPERATIVE DIAGNOSIS: Right knee osteoarthritis. POSTOPERATIVE DIAGNOSIS: Right knee osteoarthritis. PROCEDURE: Right total knee arthroplasty using Navio robotic assistant program manager. SURGEON: Ismael Narayanan MD. INTRUSION ANALYST: Estrella London PA-C. INDICATIONS FOR INTRUSION ANALYST: Throughout the case, extensive retraction and manipulation of the knee was required. This was afforded to me by my assistant program manager. ANESTHESIA: LMA with an adductor canal block. IMPLANTS: Cespedes and Nephew size 7 Journey II BCS Oxinium femur, a size 6 tibia, size 13 constrained polyethylene and size 35 patella. TOURNIQUET TIME: 62 minutes. ESTIMATED BLOOD LOSS: 25 mL. COMPLICATIONS: None. SPECIMENS: None. CONDITION UPON LEAVING THE OPERATING ROOM: Stable. INDICATIONS FOR PROCEDURE: The patient is a 59-year-old gentleman with right knee osteoarthritis. He had failed conservative measures for this and after discussion with him, he elected for right total knee arthroplasty. DESCRIPTION OF PROCEDURE: Risks, benefits, alternatives, complications were discussed in detail with the patient including but not limited to risk of anesthesia, risk of damage to nerves, arteries, blood vessels, risk for [facility] [address] [place] [address] OPERATIVE REPORT Name: LUIS ABREU Room #: 439-P [facility].#: [id number] Admission: 04/09/20 Attend Phys: Ismael Narayanan MD Discharge: Date of : 62 Report #: [id number] infection, bleeding, risk for continued knee pain and need for reoperation. Informed consent was obtained from the patient. The right knee was appropriately marked in the preoperative holding area. IV clindamycin was given for preoperative antibiotics. He was brought to the operating room and placed in supine position on operating room table. LMA anesthesia was induced without complication. Tourniquet was placed on the right thigh. Right lower extremity was prepped and draped in normal sterile fashion. Timeout was performed properly identifying the patient, the procedure as well as the instrumentation and implants. All in the operating room were in agreement. Right lower extremity was exsanguinated, tourniquet was inflated. Tourniquet time was 62 minutes. Standard midline approach to the knee was made with a 10 blade through the skin. Dissection was taken down sharply to the fascia and deep flaps were developed medially and laterally. Fresh 10 blade was used to make a medial parapatellar arthrotomy and the knee was inspected. There was [id number] medial compartment osteoarthritis with moderate patellofemoral osteoarthritis. ACL and PCL were removed sharply. Reference pins were placed in the femur and the tibia. The knee was digitally mapped using the [employer] Alaris robotic system. Intraoperative plan was made and we sized the size 7 femur with a size 6 tibia and a size 11 spacer. After acceptance of the intraoperative plan, the distal femoral cut was made with a Navio bur. Distal femoral cutting block was pinned in place using the Navio for placement and chamfer cuts were made. Attention was turned to the tibia. Remainder of the menisci removed with Bovie cautery. Tibial resection guide was pinned in place using the Navio for placement and tibial resection was made. Flexion and extension gaps were then checked and found to have good balance laterally in flexion and extension with tightness medially. This was not surprising given the underlying varus deformity of the knee. Medial osteophytes were removed from the tibia and a limited medial release was performed using the pie crust technique. This balanced the knee well and the tibia was sized, found to be a size 6. A size 6 tibial trial was placed, pinned and punched. A size 7 femoral trial was placed and the box cut was made. This was then trialed with a size 12 and then a size 13 polyethylene. Size 13 polyethylene demonstrated 2-3 mm of laxity laterally throughout range of motion of the knee. It was felt we could make up for this with a constrained implant. Medially he was balanced well. A 9 mm was resected from the posterior surface of the patella and a size 35 patellar trial button was placed. The knee was taken through range of motion, found to be stable, found to have good patellar tracking. Trial components were removed. Bony ends were thoroughly irrigated with normal saline. Final size 6 tibia, size 7 Journey II BCS Oxinium femur and a size 35 patella were cemented in place using standard cementation techniques. While the cement cured, a periarticular injection consisting of morphine, ropivacaine, epinephrine, Toradol was placed around the knee joint capsule. After the cement cured, the tourniquet was deflated. Hemostasis was obtained with Bovie cautery. A final size 13 constrained polyethylene was placed. A gram of vancomycin was placed deep in the joint. Fascia was closed with 0 Vicryl, skin was closed with 2-0 Vicryl, skin staple and a DAIN dressing was applied. The patient tolerated this [address] [place] [address] OPERATIVE REPORT Name: BRADYLUIS Room #: 439-P [facility] M.R.#: [id number] Admission: 04/09/20 Attend Phys: Ismael Narayanan MD Discharge: Date of : 62 Report #: [id number] procedure well and went to recovery room under care of anesthesia postoperatively. <ELECTRONICALLY SIGNED> By: Ismael Narayanan MD 04/09/20 1403 1245 1300 Ismael Narayanan MD /nt
[2020-04-09 17:11] VITALS: BP 110/63
--- NOTE | 2020-04-09 18:28 | NUR ---
PT RECEIVED FROM THE REC RM AT 1040 ALERT AND IN NO PAIN. PT ORIENTED TO THE UNIT. ASSESSMENT COMPLETED. RT KNEE DSNG DRY AND INTACT W/ POLAR MELISSA IN PLACE. TEDS AND SCDS IN PLACE. WALKED W/ THERAPY USING WALKER AND DID WELL. EATING AN DRINKING WELL. USING URINAL. PAIN HELPED BY MORPHINE BETTER THAN NORCO. AT BEDSIDE.
[2020-04-09 20:06] VITALS: BP 103/67
--- NOTE | 2020-04-10 02:35 | NUR ---
PT CARE ASSUMED AT 1900 WITH PT IN BED WATCHING TV.PT IS ALERT AND ORIENTED X4.PT HAD RIGHT TKR DONE YESTERDAY.DRESSING OVER INCISION CLEAR AND INTACT.PT C/O PAIN AND PAIN MANAGED WITH HYDROCODONE AND MORPHINE.PT USES URINAL.WILL CONTINUE TO MONITOR PER POC
[2020-04-10 03:37] VITALS: BP 102/63
[2020-04-10 05:52] LABS: HEMATOCRIT 40.8 % (42.0-52.0); HEMOGLOBIN 13.7 gm/dL (14.0-18.0); MCHC 33.5 g/dL (28.0-37.0); MCV 95.6 fL (80.0-100.0); RBC 4.27 mil/uL (4.50-6.00); RDW 14.2 % (10.5-14.5); WBC 12.6 thou/uL (4.0-11.0)
[2020-04-10 08:00] VITALS: BP 135/74
--- NOTE | 2020-04-10 11:05 | NUR ---
PATIENT ALERT XS 4. PLEASANT AND COOPERATIVE WITH CARE. HAS WALKED THE HALLS WITH THERAPY. WILL DISCHARGE TODAY. RX'S GIVEN AT PRE OP APPOINTMENT.
[2020-04-10 11:07] VITALS: BP 135/74
--- NOTE | 2020-04-10 13:01 | NUR ---
INITIAL ASSESSMENT/DISCHARGE NOTE: SW reviewed chart and spoke with nursing. Pt is s/p right TKA. Pt is medically stable for discharge home today. Outpatient therapy is arranged to start tomorrow. [facility] liaison issued pt a roller walker earlier today. SW met with pt and at bedside. Introduced role of SW. Pt is alert/orientated x 4. Pt and live at home. Prior to admission, pt was independent with ADLs. Pt has a cane. 8 steps to enter the home and 8 steps inside. No hx of services or post-acute placement. Pt does not have a PCP. SW provided pt with a list of [facility] providers. Pt's family to provide transportation home. No additional SW needs identified at this time, but is available to assist should needs arise.
--- NOTE | 2020-04-10 13:26 | NUR ---
DISCHARGE PAPERS REVIEWED WITH PATIENT AND SPOUSE SIGNED AND COPY IN CHART. IV ACSESS DCD. ORTHO FOLDER SENT WITH PATIENT. HAS POLAR PACK AND MONIKA MADHAV HOSE. ALL BELONGINGS PACKED AND SENT WITH PATIENT. PT GIVEN PRN IV PAIN MED BEFORE IV ACSESS DCD.
[2020-04-10 13:54] VITALS: BP 135/74
== END 2020-04-10 14:05 | disposition home or self-care (01) ==
LOC: TBA 06:26 → OR 06:26 → 4S 10:57 → OR 11:00
PROVIDERS: ATTEND Orthopaedic Surgery
DX: M17.11 Unilateral primary osteoarthritis, right knee (principal); M25.561 Pain in right knee; I10 Essential (primary) hypertension; I25.2 Old myocardial infarction; E78.5 Hyperlipidemia, unspecified; Z98.890 Other specified postprocedural states; Z79.899 Other long term (current) drug therapy; Z87.891 Personal history of nicotine dependence; Z79.82 Long term (current) use of aspirin; Z88.0 Allergy status to penicillin; Z88.8 Allergy status to other drugs, medicaments and biological substances
CPT/HCPCS: 50010; 50101; 50415; 50954; 51130; 51225; 51320; 52001; 52282; 53000; 53078; 53365; 56527; 56528; 57095; 57103; 57110; 57127; 57180; 62110; 62900; 64042; 70005

== ENCOUNTER → 2020-09-24 | Outpatient (CLI) | payer BC | LOC: MRI 10:11 | PROVIDERS: ATTEND Family Medicine | DX: I67.82 Cerebral ischemia (principal); I25.10 Atherosclerotic heart disease of native coronary artery without angina pectoris; G93.89 Other specified disorders of brain ==

== ENCOUNTER 2021-03-14 10:27 | Emergency (ER) | payer BC ==
[~2021-03-14] VITALS: Ht 182.9 cm; Wt 87.1 kg
[2021-03-14 11:00] LABS: ABSOLUTE NEUTROPHILS 6.3 thou/uL (1.4-8.2); BASOPHILS 0.8 % (0.0-2.0); EOSINOPHILS 0.9 % (0.0-3.0); HEMATOCRIT 52.9 % (42.0-52.0); HEMOGLOBIN 17.7 gm/dL (14.0-18.0); LYMPHOCYTES 18.2 % (24.0-44.0); MCH 31.5 pg (26.0-34.0); MCHC 33.5 g/dL (28.0-37.0); MONOCYTES 12.2 % (1.0-8.0); POLYS 67.9 % (36.0-66.0); RBC 5.63 mil/uL (4.50-6.00); RDW 14.1 % (10.5-14.5); WBC 9.3 thou/uL (4.0-11.0)
[2021-03-14 11:05] LABS: CALCIUM 9.8 mg/dL (8.5-10.1); CREATININE 1.1 mg/dL (0.7-1.3); POTASSIUM 3.9 mmol/L (3.5-5.1)
[2021-03-14 11:19] LABS: PLATELET COUNT 200 thou/uL (150-400)
[2021-03-14 12:25] VITALS: BP 135/70
--- NOTE | 2021-03-14 13:36 | EKG ---
[place] [address] [facility] [place] [address] ELECTROCARDIOGRAM REPORT Name: LUIS ABREU Room #: REG ER Shayne#: [id number] Admission: 03/14/21 Attend Phys: Discharge: Date of : 62 Report #: [id number] [facility] ED Test Date: 2021-03-14 Test Time: 10:30:07 Pat Name: LUIS ABREU Department: Room: Gender: M [place]: : 1960 Requested By: Adi Seth Order Number: [id number] MD: Sulaiman Tabro Measurements Intervals [place] Rate: 78 P: 0 [place]: 113 QRS: 30 QRSD: 97 T: -1 QT: 403 QTc: 460 Interpretive Statements Sinus rhythm Borderline short [place] interval Probable left atrial enlargement Nonspecific T abnormalities, inferior leads Compared to ECG 10/09/2018 14:06:01 T-wave abnormality now present Sinus bradycardia no longer present Electronically Signed On 03-14-2021 13:36:42 CDT by Sulaiman Tabor [email or web address] <ELECTRONICALLY SIGNED> By: Sulaiman Tabor MD, [facility] 03/14/21 1336 1030 29 Sulaiman Tabor MD, FACC /EPI
== END 2021-03-14 13:16 | disposition home or self-care (01) ==
LOC: ER 10:27
PROVIDERS: Emergency Medicine
DX: U07.1 COVID-19 (principal); R07.89 Other chest pain; R11.0 Nausea; R06.09 Other forms of dyspnea; E86.0 Dehydration; E78.5 Hyperlipidemia, unspecified; I25.2 Old myocardial infarction; I10 Essential (primary) hypertension; F17.210 Nicotine dependence, cigarettes, uncomplicated; Z79.82 Long term (current) use of aspirin; Z79.899 Other long term (current) drug therapy; Z88.6 Allergy status to analgesic agent; Z88.0 Allergy status to penicillin

== ENCOUNTER 2021-04-06 20:43 | Emergency (ER) | payer BC ==
[~2021-04-06] VITALS: Ht 182.9 cm; Wt 89.4 kg
[2021-04-06 21:00] VITALS: BP 113/75
[2021-04-06] MEDS ORDERED: FLEXERIL PO (22:59)
[2021-04-06] MEDS ORDERED: NAPROSYN500 MG PO (22:59)
== END 2021-04-06 23:48 | disposition home or self-care (01) ==
LOC: ER 20:43
DX: S39.012A Strain of muscle, fascia and tendon of lower back, initial encounter (principal); M43.22 Fusion of spine, cervical region; I25.2 Old myocardial infarction; I10 Essential (primary) hypertension; E78.5 Hyperlipidemia, unspecified; F17.210 Nicotine dependence, cigarettes, uncomplicated; Z79.82 Long term (current) use of aspirin; Z79.899 Other long term (current) drug therapy; Z88.5 Allergy status to narcotic agent; Z88.0 Allergy status to penicillin; X58.XXXA Exposure to other specified factors, initial encounter; Y93.89 Activity, other specified; Y92.89 Other specified places as the place of occurrence of the external cause; Y99.8 Other external cause status

== ENCOUNTER → 2021-09-01 | Outpatient (CLI) | payer BC | LOC: SJCVCIMAG 08:01 | PROVIDERS: ATTEND Internal Medicine | DX: I07.1 Rheumatic tricuspid insufficiency (principal); I48.91 Unspecified atrial fibrillation; I25.10 Atherosclerotic heart disease of native coronary artery without angina pectoris; E11.9 Type 2 diabetes mellitus without complications; E78.00 Pure hypercholesterolemia, unspecified; F12.10 Cannabis abuse, uncomplicated; Z82.49 Family history of ischemic heart disease and other diseases of the circulatory system; Z87.891 Personal history of nicotine dependence; Z72.89 Other problems related to lifestyle; Z88.5 Allergy status to narcotic agent; Z88.0 Allergy status to penicillin; Z79.82 Long term (current) use of aspirin; Z79.899 Other long term (current) drug therapy ==